=== PATIENT | female | born 1925 | race Caucasian/White ===

== ENCOUNTER 2016-10-21 18:20 | Emergency (ER) | payer MEDICARE, BC ==
--- NOTE | 2016-10-21 18:43 | Emergency Department Record ---
History of Present Illness - General Chief complaint: Weakness Stated complaint: NUMBNESS LT ARM,UNBALANCED,CONFUSION Source: Patient Mode of Arrival: Wheelchair Limitations: No limitations - History of Present Illness Initial comments: 89 yo female presents to ED with a CC of LUE numbness and tingling that began > 48 hours ago. Patient denies difficulty with ambulation or other focal weakness , denies change in vision or vision changes. Patient denies health problems at her baseline however does not see a PCP regularly. Patient does not take any medications at her baseline. MD Complaint: Focal weakness Onset/Timin -: Days(s) Location: LUE Quality: Other Improves with: None Worsens with: None Associated Symptoms: Denies other symptoms - [place] Coma Scale Eye Response: (4) Open spontaneously Motor Response: (6) Obeys commands Verbal Response: (5) Oriented [place] Total: 15 - Related Data Home Medications Medication Instructions Recorded Confirmed Last Taken No Home Med [NO HOME MEDS] 10/21/16 10/21/16 Unknown Allergies Allergy/AdvReac Type Severity Reaction Status Date / Time aspirin Allergy RASH Verified 10/21/16 18:37 Penicillins Allergy RASH Verified 10/21/16 18:38 Travel Screening - Travel/Exposure Within Last 30 Days Have you traveled within the last 30 days?: No - Travel/Exposure Within Last Year Have you traveled outside the [place] in the last year?: No - Additonal Travel Details Have you been exposed to anyone with a communicable illness?: No - Travel Symptoms Symptom Screening: None Review of Systems Constitutional: Denies: Chills, Fever, Malaise, Night sweats Eyes: Denies: Eye discharge, Eye pain ENT: Denies: Congestion, Ear pain, Epistaxis Respiratory: Denies: Cough, Dyspnea Cardiovascular: Denies: Chest pain, Dyspnea on exertion Endocrine: Denies: Fatigue, Heat or cold intolerance Gastrointestinal: Denies: Melena, Nausea, Vomiting Genitourinary: Denies: Incontinence, Retention Musculoskeletal: Denies: Arthralgia, Back pain, Gout, Joint swelling Skin: Denies: Bruising, Change in color Neurological: Reports: Numbness, Weakness ("difficulty grasping objects"). Denies: Abnormal gait, Confusion, Headache Psychiatric: Denies: Anxiety Hematological/Lymphatic: Denies: Anemia, Blood Clots Past Medical History - SOCIAL HISTORY Smoking Status: Never smoker Alcohol Use: None Drug Use: None - RESPIRATORY Hx Respiratory Disorders: No - CARDIOVASCULAR Hx Cardio Disorders: No - NEURO Hx Neuro Disorders: No - GI Hx GI Disorders: No - Hx Genitourinary Disorders: No - ENDOCRINE Hx Endocrine Disorders: No - MUSCULOSKELETAL Hx Musculoskeletal Disorders: Yes Hx Arthritis: Yes - PSYCH Hx Psych Problems: No - HEMATOLOGY/ONCOLOGY Hx Hematology/Oncology Disorders: No Family Medical History Any Significant Family History?: No Physical Exam - General General Appearance: Alert, Oriented x3, Cooperative, No acute distress Limitations: No limitations - Head Head exam: Atraumatic, Normocephalic, Normal inspection Head exam detail: negative: Abrasion, Contusion, Bravo's sign, General tenderness, Hematoma, Laceration - Eye Eye exam: Other (Mild lateral gaze to the right eye). negative: Conjunctival injection, Periorbital swelling, Periorbital tenderness, Scleral icterus - ENT Ear exam: negative: Auricular hematoma, Auricular trauma Nasal Exam: negative: Active bleeding, Discharge, Dried blood, Foreign body Mouth exam: negative: Laceration, Muffled voice, Tongue elevation - Neck Neck exam: Normal inspection. negative: Meningismus, Tenderness - Respiratory Respiratory exam: Normal lung sounds bilaterally. negative: Rales, Respiratory distress, Rhonchi, Stridor - Cardiovascular Cardiovascular Exam: Regular rate, Normal rhythm, Normal heart sounds - GI/Abdominal GI/Abdominal exam: Soft. negative: Rebound, Rigid, Tenderness - Rectal Rectal exam: Deferred - exam: Deferred - Extremities Extremities exam: negative: Calf tenderness, Pedal edema, Tenderness - Back Back exam: Denies: CVA tenderness (R), CVA tenderness (L) - Neurological Neurological exam: Alert, Oriented X3, Other (Platen Builder Up strength is 4+/5 and symmetric on examination, however proximaly forearm weakness is noted on examination) - Psychiatric Psychiatric exam: Normal affect, Normal mood - Skin Skin exam: Normal color. negative: Abrasion Type of lesion: negative: abrasion Course Vital Signs 10/21/16 18:25 Temperature 97.5 F L Pulse Rate 76 Respiratory 16 Rate Blood Pressure 191/75 Pulse Ox 94 L - Reevaluation(s) Reevaluation #1: 10/21/16 18:53 EKG: NSR [address]-T wave changes Reevaluation #2: 10/21/16 19:35 Labs reviewed and are grossly unremarkable for an acute process. Reevaluation #3: 10/21/16 20:42 CT Brain: No acute process, chronic small vessel ischemic changes and volume loss are present. Reevaluation #4: 10/21/16 20:52 Case was discussed with Dr. Hamm, will accept for further neurological examination for possible CVA. ASA ordered in ED, given the duration of sympotms , patient is not a tPA candidate. Patient and family agree with the plan of care for transfer to [facility]. Medical Decision Making - Lab Data Result diagrams: 10/21/16 18:45 10/21/16 18:45 Disposition Disposition: Transfer Clinical Impression: CVA (cerebral vascular accident) Qualifiers: CVA mechanism: unspecified Qualified Code(s): I63.9 - Cerebral infarction, unspecified Disposition: Acute Care Hospital Transfer Transfer To: [facility] Reason For Transfer: Neurology/Stroke consultation Accepting Physician: Noris Time Discussed w/Accepting Physician: 20:54 Forms: Patient Portal Access Time of Disposition: 20:54 Quality - Quality Measures Quality Measures: N/A - Blood Pressure Screening Blood Pressure Classification: Hypertensive Reading Systolic Measurement: 193 Diastolic Measurement: 90 Screening for High Blood Pressure: < First Hypertensive BP, F/U Documented > [ [id number]] First Hypertensive Follow-up Interventions: Referral to alternative/primary care provider.
[2016-10-21 19:15] LABS: ALB/GLOB RATIO 1.3 (1.1-1.8); ALBUMIN 4.3 gm/dL (3.5-5.0); ALKALINE PHOSPHATASE 60 U/L (38-126); ALT/SGPT 22 U/L (9-52); ANION GAP 12.4 (7-16); AST/SGOT 20 U/L (14-36); BILIRUBIN,TOTAL 0.87 mg/dL (0.2-1.3); BLOOD UREA NITROGEN 20 mg/dL (7-17); CARBON DIOXIDE 27.6 mmol/L (22-30); CREATINE PHOSPHOKINASE 90 U/L (30-135); EST GLOMERULAR FILTRATION RATE 55 ml/min; GLUCOSE,RANDOM 154 mg/dL (70-110); TOTAL PROTEIN 7.5 gm/dL (6.3-8.2)
[2016-10-21 19:26] LABS: CKMB 0.8 ug/L (0-6)
[2016-10-21 19:27] LABS: BASO % 0.4 % (0-6); EOS % 2.5 % (0-6); GRAN % 60.9 % (47-80); HEMOGLOBIN 14.2 gm/dl (11.6-16.0); LYMPH % 29.8 % (16-45); MEAN CELL VOLUME 97.2 fl (81-97); MEAN CORPUSCULAR HEMOGLOBIN 30.7 pg (27-33); MEAN CORPUSCULAR HGB CONC 31.6 g/dl (32-36); MEAN PLATELET VOLUME 9.7 fl (7.4-10.4); MONO % 6.4 % (0-9); PLATELET COUNT 172 K/uL (130-400); RED BLOOD COUNT 4.63 M/uL (3.80-5.40); RED CELL DISTRIBUTION WIDTH 12.9 % (11.5-14.5); WHITE BLOOD COUNT W/O DIFF 5.6 K/uL (4.2-12.2)
[2016-10-21 19:33] LABS: TROPONIN I < 0.012 ng/mL (0.00-0.034)
[2016-10-21] MEDS ORDERED: ASPIRIN 81 MG CHEWABLE TABLET PO ONE (20:52)
--- NOTE | 2016-10-24 08:04 | CT SCAN REPORT ---
EXAM: CT SCAN OF THE HEAD HISTORY: PATIENT HAS LEFT ARM WEAKNESS TIMES THREE DAYS. TECHNIQUE: Serial axial CT scan of the head was performed at 2.5 mm intervals from the base of the skull to the apex without the use of intravenous contrast. Sagittal and coronal reconstructions were provided. No comparison CT's are available. FINDINGS: Moderately increased generalized parenchymal volume loss is noted bilaterally. There is no mass or mass effect. Occasional nonspecific bilateral subcortical and periventricular white matter foci. Decreased attenuation is identified suggesting chronic small vessel ischemic changes. There is no CT evidence of intra or extraaxial fluid collection to suggest bleeding. Bone windows demonstrate no CT evidence of a fracture or dislocation of the skull. The paranasal sinuses demonstrate postoperative changes in the left maxillary sinus. Bilateral frontal, ethmoid and sphenoid sinuses are well pneumatized and well aerated. The mastoid air cells are intact. IMPRESSION: GENERALIZED PARENCHYMAL VOLUME LOSS AND CHRONIC SMALL VESSEL ISCHEMIC CHANGES ARE IDENTIFIED WITHOUT CT EVIDENCE OF AN ACUTE INTRACRANIAL PROCESS. JOB NUMBER: [id number] MTDD
== END 2016-10-21 22:46 | disposition short-term general hospital (02) ==
LOC: ER 18:20
DX: I63.9 Cerebral infarction, unspecified (principal); R41.0 Disorientation, unspecified
CPT/HCPCS: 70450; 80053; 82550; 82553; 84484; 85025; 93005; 93010; 99285